=== PATIENT | male | born 1990 | race Caucasian/White ===

== ENCOUNTER 2018-05-10 18:02 | Emergency (ER) | payer MEDICAID ==
[2018-05-10] MEDS ORDERED: NS 1,000 ML IV ONE (18:55)
[2018-05-10] MEDS ORDERED: ONDANSETRON 4 MG/2 ML VIAL IVP ONE (18:55)
[2018-05-10 19:17] LABS: PLATELET COUNT 271 10^3/uL (150-400)
--- NOTE | 2018-05-10 19:33 | EDPHY ---
H & P Stated Complaint: n/v x 4 days, stephani, Alcohol withdrawl, last drink 1730 Time Seen by Provider: 05/10/18 19:00 HPI/ROS: CHIEF COMPLAINT: Nausea, feeling poorly HISTORY OF PRESENT ILLNESS: 28-year-old male with long history of heavy alcohol use, reports having inpatient alcohol rehab treatment previously, who has been drinking heavily for the last several weeks. Presents today reporting that over the last 4 days he has had vomiting. He has continued to drink alcohol during this time. No seizure. Patient does report drinking mouthwash about a week ago. He denies ingestion of other alcohol such as isopropyl alcohol, methanol, or ethylene glycol. Reports diarrhea frequently. Denies history of hepatitis or pancreatitis. Denies fevers or chills, denies chest pain, shortness of breath, palpitations, lightheadedness, or urinary complaints. Patient states that he took oral Ativan prior to presentation which seems to have helped his symptoms. REVIEW OF SYSTEMS: A comprehensive 10 system review of systems was reviewed and is otherwise negative aside from elements mentioned in the history of present illness and medical decision making. PAST MEDICAL HISTORY: Alcohol abuse SOCIAL HISTORY: Alcohol abuse, daily marijuana smoker. Denies other illicit drugs. VITAL SIGNS Reviewed by me. Not hypertensive or tachycardic. GENERAL: Well-developed, well-nourished, resting comfortably in no respiratory distress. HEENT: Atraumatic. Eyes: No icterus, no injection. No nystagmus. No icterus. Mouth: moist mucous membranes. No erythema or lesions. No tremors. Neck: supple with no adenopathy. LUNGS: Clear to auscultation bilaterally, no wheezes, rhonchi or rales. CARDIAC: Regular rate and rhythm, no rubs, murmurs or gallops. ABDOMEN: Soft, nontender, nondistended, bowel sounds normal. BACK: No CVA tenderness. EXTREMITIES: No trauma. No edema. Range of motion is normal throughout. No tremor. NEURO: Alert and oriented, grossly nonfocal. SKIN: Warm and dry, no rash. No diaphoresis. PSYCHIATRIC: Normal mentation, no agitation. - Personal History Current Tetanus Diphtheria and Acellular Pertussis (TDAP): Yes - Medical/Surgical History Hx Asthma: No Hx Chronic Respiratory Disease: No Hx Diabetes: No Hx Cardiac Disease: No Hx Renal Disease: No Hx Cirrhosis: No Hx Alcoholism: No Hx HIV/AIDS: No Hx Splenectomy or Spleen Trauma: No Other PMH: none - Social History Smoking Status: Never smoked Constitutional: Initial Vital Signs Temperature (C) 37.2 C 05/10/18 18:19 Heart Rate 95 05/10/18 18:19 Respiratory Rate 16 05/10/18 18:19 Blood Pressure 142/78 H 05/10/18 18:19 O2 Sat (%) 94 05/10/18 18:19 O2 Delivery Mode Room Air Allergies/Adverse Reactions: No Known Allergies Allergy (Unverified 05/10/18 18:23) Home Medications: Medication Instructions Recorded NK [No Known Home Meds] 05/10/18 Medical Decision Making ED Course/Re-evaluation: IV established. Patient received Zofran. The laboratory evaluations remarkable mostly for a alcohol level of 220. Patient is slightly acidotic with a CO2 of 21 and anion gap of 19. He was re-evaluated after receiving a L normal saline. He reports feeling improved, but still slightly nauseous. We discussed admission to the [facility], which the patient does not want to do. He has been to the [facility] previously. Patient received a 2nd L of D5 normal saline as treatment for presumed alcoholic ketoacidosis. Received Librium 25 mg. Tolerating p.o. Without difficulty. Discharged to his home. Differential Diagnosis: Differential diagnosis of the patient's nausea and vomiting was considered including but not limited to gastroenteritis, gastritis, alcohol intoxication, withdrawal symptoms, intraabdominal processes including appendicitis, pancreatitis, bowel obstruction and medication side effect. - Data Points Laboratory Results: Laboratory Results 05/10/18 19:05 05/10/18 19:05 05/10/18 05/10/18 19:05 19:05 WBC 15.05 10^3/uL H 10^3/uL (3.80-9.50) RBC 4.40 10^6/uL 10^6/uL (4.40-6.38) Hgb 14.6 g/dL g/dL (13.7-17.5) Hct 42.7 % % (40.0-51.0) MCV 97.0 fL fL (81.5-99.8) MCH 33.2 pg pg (27.9-34.1) MCHC 34.2 g/dL g/dL (32.4-36.7) RDW 12.8 % % (11.5-15.2) Plt Count 271 10^3/uL 10^3/uL (150-400) MPV 10.3 fL fL (8.7-11.7) Neut % (Auto) 76.5 % H % (39.3-74.2) Lymph % (Auto) 19.7 % % (15.0-45.0) Luce % (Auto) 2.9 % L % (4.5-13.0) Eos % (Auto) 0.1 % L % (0.6-7.6) Baso % (Auto) 0.4 % % (0.3-1.7) Nucleat RBC Rel Count 0.0 % % (0.0-0.2) Absolute Neuts (auto) 11.53 10^3/uL H 10^3/uL (1.70-6.50) Absolute Lymphs (auto) 2.96 10^3/uL 10^3/uL (1.00-3.00) Absolute Monos (auto) 0.43 10^3/uL 10^3/uL (0.30-0.80) Absolute Eos (auto) 0.01 10^3/uL L 10^3/uL (0.03-0.40) Absolute Basos (auto) 0.06 10^3/uL 10^3/uL (0.02-0.10) Absolute Nucleated RBC 0.00 10^3/uL 10^3/uL (0-0.01) Immature Gran % 0.4 % % (0.0-1.1) Immature Gran # 0.06 10^3/uL 10^3/uL (0.00-0.10) Sodium 140 mEq/L mEq/L (135-145) Potassium 3.5 mEq/L mEq/L (3.5-5.2) Chloride 100 mEq/L mEq/L (97-110) Carbon Dioxide 21 mEq/l L mEq/l (22-31) Anion Gap 19 mEq/L H mEq/L (6-14) BUN 11 mg/dL mg/dL (7-23) Creatinine 0.7 mg/dL mg/dL (0.7-1.3) Estimated GFR > 60 Glucose 74 mg/dL mg/dL (70-100) Calcium 9.6 mg/dL mg/dL (8.5-10.4) Total Bilirubin 0.6 mg/dL mg/dL (0.1-1.4) Conjugated Bilirubin 0.4 mg/dL mg/dL (0.0-0.5) Unconjugated Bilirubin 0.2 mg/dL mg/dL (0.0-1.1) AST 28 IU/L IU/L (17-59) ALT 26 IU/L IU/L (21-72) Alkaline Phosphatase 75 IU/L IU/L (38-126) Total Protein 7.7 g/dL g/dL (6.3-8.2) Albumin 4.8 g/dL g/dL (3.5-5.0) Lipase 79 IU/L IU/L (23-300) Ethyl Alcohol 220 mg/dL H mg/dL (0-10) Medications Given: Dextrose/Sodium Chloride (D5w Ns) 1,000 mls @ 1,000 mls/hr IV EDNOW ONE PRN Reason: Protocol Stop: 05/10/18 21:00 Last Admin: 05/10/18 20:06 Dose: 1,000 mls Discontinued Medications Chlordiazepoxide HCl (Librium) 25 mg PO EDNOW ONE Stop: 05/10/18 20:08 Last Admin: 05/10/18 20:19 Dose: 25 mg Sodium Chloride (Ns) 1,000 mls @ 0 mls/hr IV ONCE ONE PRN Reason: Wide Open Stop: 05/10/18 18:56 Last Admin: 05/10/18 19:02 Dose: 1,000 mls Ondansetron HCl (Zofran) 4 mg IVP EDNOW ONE Stop: 05/10/18 18:56 Last Admin: 05/10/18 19:02 Dose: 4 mg Departure - Departure Disposition: Home, Routine, Self-Care Clinical Impression: Alcohol intoxication Qualifiers: Complication of substance-induced condition: uncomplicated Qualified Code(s): F10.920 - Alcohol use, unspecified with intoxication, uncomplicated Vomiting Qualifiers: Vomiting type: unspecified Vomiting Intractability: non-intractable Nausea presence: with nausea Qualified Code(s): R11.2 - Nausea with vomiting, unspecified Condition: Good Instructions: Alcohol Intoxication (ED), Abuse of Alcohol (ED), Acute Nausea and Vomiting (ED) Additional Instructions: Stop drinking alcohol in excessive quantities. Okay to take Zofran if needed for ongoing nausea. Referrals: NONE *PRIMARY CARE P,. [Primary Care Provider] - As per Instructions
[2018-05-10] MEDS ORDERED: D5W NS 1,000 ML IV ONE (20:01)
[2018-05-10] MEDS ORDERED: chlordiazePOXIDE 25 MG CAP PO ONE (20:07)
[2018-05-10] MEDS ORDERED: ONDANSETRON 4MG PREPACK#2 BTL TAKEHOME ONE (20:45)
[2018-05-10 21:09] VITALS: BP 111/80
== END 2018-05-10 21:32 | disposition home or self-care (01) ==
DX: F10.129 Alcohol abuse with intoxication, unspecified (principal); R11.2 Nausea with vomiting, unspecified; Y90.7 Blood alcohol level of 200-239 mg/100 ml; E86.9 Volume depletion, unspecified
CPT/HCPCS: 96374; G0480; J2405